=== PATIENT | male | born 1995 | race African-American/Black ===

== ENCOUNTER 2019-03-18 17:28 | Emergency (ER) | payer BC ==
--- NOTE | 2019-03-18 17:38 | ER Report ---
History and Physical Time Seen By MD: 17:33 Hx. of Stated Complaint: PATIENT REPORTS INTERMITTENT CHEST PAIN AND ARM NUMBNESS FOR THE LAST 6 MONTHS (LATASHA NAVA MD) HPI/ROS CHIEF COMPLAINT: Chest pain HISTORY OF PRESENT ILLNESS: Otherwise healthy 23-year-old male comes emergency Department a complaint of pleuritic chest pain which is been going on episodically for the last 6 months. Patient states localized the left parasternal area some radiation to the left upper extremity occasionally he gets left upper extremity numbness. No other associated symptoms last about 45 seconds describing it as 1000 unit smoking in his chest. He denies any nausea vomiting diarrhea fever chills denies any diaphoresis or shortness of breath. Patient has no medical history is a nonsmoker. Patient denies cough REVIEW OF SYSTEMS: Respiratory: No cough, no dyspnea. Cardiovascular: Pleuritic chest pain or palpitation Gastrointestinal: No vomiting, no abdominal pain. Musculoskeletal: No back pain. Remainder of the 14 system rev: Yes (LATASHA NAVA MD) Reviewed Nurses Notes: Yes Old Medical Records Reviewed: Yes (LATASHA NAVA MD) Hx Substance Use Disorder: No (LATASHA NAVA MD) Constitutional Vital Sign - Last 24 Hours 03/18/19 03/18/19 03/18/19 03/18/19 17:30 17:31 17:58 18:00 Temp 98.0 Pulse 82 59 Resp 20 B/P (MAP) 118/76 (90) 118/76 116/71 (86) Pulse Ox 95 94 O2 Delivery Room Air 03/18/19 03/18/19 03/18/19 18:05 18:30 18:35 Pulse 59 68 B/P (MAP) 130/48 (75) Pulse Ox 94 94 (STEVENDASIA LIMA MD) Physical Exam General Appearance: The patient is alert, has no immediate need for airway protection and no current signs of toxicity. [ ] Eyes: Pupils equal and round no injection. Respiratory: Chest is non tender, lungs are clear to auscultation. Cardiac: regular rate and rhythm [ ] Gastrointestinal: Abdomen is soft and non tender, no masses, bowel sounds normal. Musculoskeletal: Neck: Neck is supple and non tender. Extremities have full range of motion and are non tender. Skin: No rashes or lesions. [ ] DIFFERENTIAL DIAGNOSIS: After history and physical exam differential diagnosis was considered for PE costochondritis musculoskeletal chest pain cardiac abnormality (LATASHA NAVA MD) Medical Decision Making Data Points Result Diagram: 03/18/19 1738 03/18/19 1738 Laboratory Hematology Test 03/18/19 17:38 White Blood Count 3.8 k/uL (4.5-11.0) L Red Blood Count 5.52 M/uL (4.00-5.60) Hemoglobin 16.4 g/dL (14.0-18.0) Hematocrit 48.1 % (42.0-52.0) Mean Corpuscular Volume 87.2 fL (80.0-96.0) Mean Corpuscular Hemoglobin 29.7 pg (26.0-33.0) Mean Corpuscular Hemoglobin Concent 34.0 g/dL (32.0-36.0) Red Cell Distribution Width 12.9 % (11.5-14.5) Platelet Count 236 K/uL (150-450) Mean Platelet Volume 7.2 fL (7.2-11.1) Neutrophils (%) (Auto) 32.8 % (39.4-72.5) L Lymphocytes (%) (Auto) 54.3 % (17.6-49.6) H Monocytes (%) (Auto) 9.4 % (4.1-12.4) Eosinophils (%) (Auto) 1.8 % (0.4-6.7) Basophils (%) (Auto) 1.7 % (0.3-1.4) H Nucleated RBC Relative Count (auto) 0.2 /100WBC Neutrophils # (Auto) 1.3 K/uL (2.0-7.4) L Lymphocytes # (Auto) 2.1 K/uL (1.3-3.6) Monocytes # (Auto) 0.4 K/uL (0.3-1.0) Eosinophils # (Auto) 0.1 K/uL (0.0-0.5) Basophils # (Auto) 0.1 K/uL (0.0-0.1) Nucleated RBC Absolute Count (auto) 0.01 K/uL Chemistry Test 03/18/19 17:38 Sodium Level 141 mmol/L (137-145) Potassium Level 3.8 mmol/L (3.5-5.0) Chloride Level 104 mmol/L (98-107) Carbon Dioxide Level 26 mmol/L (22-30) Blood Urea Nitrogen 9 mg/dl (9-21) Creatinine 1.40 mg/dl (0.66-1.25) Glomerular Filtration Rate Calc > 60.0 Random Glucose 89 mg/dl (75-110) Calcium Level 9.6 mg/dl (8.4-10.2) Total Bilirubin 1.0 mg/dl (0.2-1.3) Aspartate Amino Transf (AST/SGOT) 48 U/L (0-35) Alanine Aminotransferase (ALT/SGPT) 45 U/L (0-56) Alkaline Phosphatase 90 U/L (0-126) Troponin I < 0.012 ng/ml Total Protein 8.1 g/dl (6.3-8.2) Albumin 4.6 g/dl (3.5-5.0) Coagulation Test 03/18/19 17:38 D-Dimer Quantitative (PE/DVT) < 0.27 ug/ml (0-0.50) (DASIA HARRIS MD) ED Course/Re-evaluation ED Course I assumed care of this patient from Dr. Nava at shift change. Labs and imaging negative except for mild renal insufficiency. Recommended temporary 5 day course of Ibuprofen 800mg three times a day with food and with increased fluid intake for pleuritic chest pain. Follow-up with regular doctor if not improving. Decision to Disposition Date: Mar 18, 2019 Decision to Disposition Time: 18:33 (DASIA HARRIS MD) Depart Departure Latest Vital Signs Vital Signs Date Time Temp Pulse Resp B/P (MAP) Pulse Ox O2 Delivery O2 Flow Rate FiO2 03/18/19 18:35 68 94 03/18/19 18:30 130/48 (75) 03/18/19 17:31 98.0 20 Room Air (DSAIA HARRIS MD) Impression: Primary Impression: Pleuritic chest pain Condition: Improved Disposition: HOME OR SELF-CARE Departure Forms: Medications Reconciliation, Patient Portal Information, ER Transition Record Patient Instructions: Pleurisy (ED) Additional Instructions: Your pain appears to be likely due to inflammatory changes in the chest wall or lining of the lungs. We recommend using anti-inflammatory medications such as Ibuprofen. Ibuprofen 200mg over the counter tablets, take 4 tablets three times a day with food. Increase fluid intake. LATASHA NAVA MD Mar 18, 2019 17:38 DASIA HARRIS MD Mar 18, 2019 18:08
--- NOTE | 2019-03-18 17:53 | EKG ---
FACILITY: [facility] PATIENT NAME: FERNANDO THAO : [id number] MR: [id number] V: [id number] EXAM DATE: ORDERING PHYSICIAN: LATASHA JARA TECHNOLOGIST: Test Reason : cp Blood Pressure : / mmHG Vent. Rate : 060 BPM Atrial Rate : 060 BPM P-R Int : 152 ms QRS Dur : 086 ms QT Int : 370 ms P-R-T Axes : 074 086 053 degrees QTc Int : 370 ms Normal sinus rhythm Normal ECG No previous ECGs available Confirmed by YASH VEE ([id number]) on 03/19/2019 6:26:25 AM Referred By: Confirmed By:YASH VEE
[2019-03-18 17:58] LABS: PLATELET COUNT, AUTOMATED 236 K/uL (150-450)
--- NOTE | 2019-03-18 18:14 | RADIOLOGY IMAGING REPORT ---
FACILITY: [facility] PATIENT NAME: James Tyler : 1995 MR: [id number] V: [id number] EXAM DATE: ORDERING PHYSICIAN: LATASHA JARA TECHNOLOGIST: Location: [facility] Patient: James Tyler : 1995 Visit/Account:[id number] Date of Sevice: 03/18/2019 EXAMINATION: Chest 2 Views HISTORY: Chest pain. COMPARISON: None. FINDINGS: The lungs are clear. No focal consolidation or pleural fluid. No pneumothorax. Normal cardiomediastinal silhouette, with normal heart size and pulmonary vascularity. Visualized osseous structures are unremarkable. IMPRESSION: Negative chest. Report Dictated By: Js Burr MD at 03/18/2019 6:07 PM Report E-Signed By: Js Burr MD at 03/18/2019 6:09 PM WSN:[id number]
[2019-03-18 18:30] VITALS: BP 130/48
== END 2019-03-18 18:49 | disposition home or self-care (01) ==
LOC: ER 17:38
DX: R07.81 Pleurodynia (principal)
CPT/HCPCS: 71046; 82040; 82247; 82310; 82374; 82435; 82565; 82947; 84075; 84132; 84155; 84295; 84450; 84460; 84484; 84520; 85025; 85379; 93005; 99283